=== PATIENT | female | born 1940 | race Caucasian/White ===

== ENCOUNTER → 2016-05-14 | Outpatient (CLI) | payer MEDICARE, BC ==
[~2016-05-14] MED LIST: ASPIRIN E.C. 8181 MG PO; CALCIUM 500 W/V1 TAB PO; FORTICAL200 IU/ACT NS; HORMONE COMPOUND PO; MULTIVITAMIN FO1 CAP PO; OMEGA 31000 MG PO; OMEPRAZOLE20 MG PO; SIMVASTATIN20 MG PO; THYROXIN PO; ZYRTEC10 MG PO
== END ==
LOC: MC.RAD 14:00
DX: Z12.31 Encounter for screening mammogram for malignant neoplasm of breast (principal)

== ENCOUNTER → 2017-05-26 | Outpatient (CLI) | payer MEDICARE, BC | LOC: MC.RAD 15:46 | DX: Z12.31 Encounter for screening mammogram for malignant neoplasm of breast (principal) ==

== ENCOUNTER → 2018-03-14 | Outpatient (CLI) | payer MEDICARE, BC | LOC: MC.RAD 13:51 | DX: N63.20 Unspecified lump in the left breast, unspecified quadrant (principal); N64.4 Mastodynia | CPT/HCPCS: G0279 ==

== ENCOUNTER 2019-03-25 21:07 | Emergency (ER) | payer MEDICARE, BC ==
[~2019-03-25] VITALS: Ht 165.1 cm; Wt 72.7 kg
[2019-03-25 21:12] VITALS: TEMP 97.7
[2019-03-25 21:28] LABS: BASO # 0.1 (0.0-0.2); EOS # 0.3 (0.0-0.7); EOS % 3.1 % (0-4.0); GRAN # 3.4 (1.4-6.5); GRAN % 40.2 % (42.2-75.2); HEMATOCRIT 44.2 % (37.0-47.0); HEMOGLOBIN 13.9 g/dl (12.5-16.0); LYMPH # 3.8 (1.2-3.4); LYMPH % 45.6 % (20.0-51.0); MEAN CELL VOLUME 89 fl (80.0-100.0); MEAN CORPUSCULAR HEMOGLOBIN 28 pg (27.0-31.0); MEAN CORPUSCULAR HGB CONC 31 g/dl (33.0-37.0); MONO # 0.8 (0.1-0.6); MONO % 9.7 % (1.7-9.3); PLATELET COUNT 239 K/mm3 (130-400); RED BLOOD COUNT 4.95 M/mm3 (4.10-5.30); REDCELL DISTRIBUTION WIDTH-CV 14.3 % (11.5-14.5)
[2019-03-25 21:32] LABS: PROTHROMBIN TIME 11.8 SECONDS (9.7-12.8)
[2019-03-25] MEDS ORDERED: ELIQUIS 5MG PO (21:32)
[2019-03-25] MEDS ORDERED: TOPROL XL 50MG50 MG PO (21:32)
[2019-03-25] MEDS ORDERED: SYNTHROID0.05 MG/TA PO (21:33)
[2019-03-25 21:39] LABS: ALANINE AMINOTRANSFERASE 29 U/L (9-52); ALBUMIN 4.9 gm/dL (3.5-5.0); ALKALINE PHOSPHATASE 58 U/L (50-136); ANION GAP 10 mmol/L (7-16); AST,SGOT 56 U/L (15-37); BILIRUBIN,TOTAL 0.3 mg/dL (0.0-1.0); BLOOD UREA NITROGEN 20 mg/dL (7-17); CALCIUM 9.8 mg/dL (8.4-10.2); CARBON DIOXIDE 28 mmol/L (22-30); CHLORIDE 101 mmol/L (98-107); CREATININE, serum 1.19 (0.52-1.25); GLUCOSE 103 mg/dL (74-106); POTASSIUM 4.1 mmol/L (3.4-5.0); SODIUM 139 mmol/L (137-145)
[2019-03-25 21:51] LABS: TROPONIN-I < 0.012 ng/mL (0.000-0.035)
[2019-03-26 01:00] VITALS: BP 148/69; PULSE 60
== END 2019-03-26 01:15 | disposition home or self-care (01) ==
LOC: COL.ER 21:07
PROVIDERS: Emergency Medicine
DX: R07.89 Other chest pain (principal); R10.9 Unspecified abdominal pain; E03.9 Hypothyroidism, unspecified; E78.5 Hyperlipidemia, unspecified; I48.91 Unspecified atrial fibrillation; Z90.89 Acquired absence of other organs; Z79.01 Long term (current) use of anticoagulants; Z79.82 Long term (current) use of aspirin

== ENCOUNTER 2019-10-02 06:30 | Day surgery (SDC) | payer MEDICARE, BC ==
[~2019-10-02] VITALS: Ht 165.1 cm; Wt 74.5 kg
[2019-10-02] VITALS (9 sets, daily range): BP systolic 88–150; BP diastolic 45–75; PULSE 58–84; TEMP 97.5–97.8
[~2019-10-02 06:30] MED LIST changes: +ELIQUIS 5MG PO; +SYNTHROID0.05 MG/TA PO; +TOPROL XL 50MG50 MG PO
[2019-10-02 07:30] LABS: CALCIUM 10.1 mg/dL (8.4-10.2); CREATININE, serum 0.81 (0.52-1.25); POTASSIUM 4.6 mmol/L (3.4-5.0)
[2019-10-02] MEDS ORDERED: FORTICAL200 IU/ACT NS (08:01)
[2019-10-02] MEDS ORDERED: PRILOSEC 20MG20 MG PO (08:02)
[2019-10-02] MEDS ORDERED: TIROSINT50 MC1 PO (08:02)
[2019-10-02] MEDS ORDERED: POLY GLYCOL PO (08:04)
[2019-10-02] MEDS ORDERED: TOPROL XL 50MG50 MG PO (08:05)
[2019-10-02] MEDS ORDERED: ELIQUIS 5MG PO (08:06)
[2019-10-02] MEDS ORDERED: MAGNESIUM500 MG PO (08:07)
[2019-10-02] MEDS ORDERED: EPA FISH OIL1 SGL PO (08:08)
[2019-10-02] MEDS ORDERED: CALCIUM CARBON650 M2 PO (08:09)
[2019-10-02] MEDS ORDERED: ZOCOR 20MG20 MG PO (08:09)
[2019-10-02] MEDS ORDERED: NORCO 325 MG-51 TAB PO (09:12)
--- NOTE | 2019-10-02 10:15 | NUR ---
Patient returns to room 6 per cart from PACU accompanied by Krystyna HONEYCUTT and is awake and alert. Incisions x3 on abdomen covered with bandaids and are dry. Denies pain or nausea. IV fluids infusing and siderails up x2. Call light in reach. Spouse in room. Allowed to rest. Sipping on ice chips.
--- NOTE | 2019-10-02 10:30 | NUR ---
Room air sats 95%. Resting and denies pain or nausea. Spouse in room.
--- NOTE | 2019-10-02 10:45 | NUR ---
Resting with eyes closed when not disturbed.
--- NOTE | 2019-10-02 11:00 | NUR ---
Continues to rest without complaints of pain or nausea.
--- NOTE | 2019-10-02 11:15 | NUR ---
Patient eating muffin and assisted with repositioning. Denies pain or nausea.
--- NOTE | 2019-10-02 11:45 | NUR ---
Assisted up to the bathroom and gait is steady. Voids and returns to room. Denies pain or nausea.
--- NOTE | 2019-10-02 12:15 | NUR ---
Tolerates juice, muffin, and water. Continues to deny pain or nausea.
--- NOTE | 2019-10-02 12:40 | NUR ---
IV discontinued and patient dresses self. Given dismissal instructions and voices understanding of these. Provided script for [place]. Instructed the patient to begin Eliquis on 10/03/19.
--- NOTE | 2019-10-02 12:44 | NUR ---
Patient dismissed to home driven by spouse and taken to the front door per wheelchair and assisted into car with dismissal instructions in hand.
== END 2019-10-02 12:44 | disposition home or self-care (01) ==
LOC: SDCO 06:30
PROVIDERS: Nurse Anesthetist, Certified Registered
DX: K80.12 Calculus of gallbladder with acute and chronic cholecystitis without obstruction (principal); Z95.0 Presence of cardiac pacemaker; I48.91 Unspecified atrial fibrillation; I10 Essential (primary) hypertension; E78.00 Pure hypercholesterolemia, unspecified; Z82.3 Family history of stroke; Z79.01 Long term (current) use of anticoagulants; Z80.9 Family history of malignant neoplasm, unspecified; Z79.899 Other long term (current) drug therapy; Z79.82 Long term (current) use of aspirin
CPT/HCPCS: J0360; J2704; J3010; J7120

== ENCOUNTER 2019-11-03 18:29 | Inpatient (IN) | payer MEDICARE, BC ==
[~2019-11-03] VITALS: Wt 72.7 kg
[~2019-11-03 18:29] MED LIST changes: +CALCIUM CARBON650 M2 PO; +EPA FISH OIL1 SGL PO; +MAGNESIUM500 MG PO; +NORCO 325 MG-51 TAB PO; +POLY GLYCOL PO; +PRILOSEC 20MG20 MG PO; +TIROSINT50 MC1 PO; +ZOCOR 20MG20 MG PO
[2019-11-03 19:19] LABS: ALANINE AMINOTRANSFERASE 604 U/L (4-34); ALBUMIN 4.4 gm/dL (3.5-5.0); ALKALINE PHOSPHATASE 352 U/L (50-136); ANION GAP 8 mmol/L (7-16); AST,SGOT 537 U/L (15-37); BILIRUBIN,TOTAL 2.3 mg/dL (0.0-1.0); BLOOD UREA NITROGEN 11 mg/dL (7-17); C-REACTIVE PROTEIN 2.1 mg/dL (0.0-0.9); CALCIUM 9.3 mg/dL (8.4-10.2); CARBON DIOXIDE 28 mmol/L (22-30); CHLORIDE 96 mmol/L (98-107); CREATININE, serum 0.79 (0.52-1.25); GLUCOSE 117 mg/dL (74-106); POTASSIUM 3.8 mmol/L (3.4-5.0); SODIUM 132 mmol/L (137-145); TOTAL PROTEIN 7.8 gm/dL (6.4-8.2)
[2019-11-03 19:28] LABS: TROPONIN-I < 0.012 ng/mL (0.000-0.035)
[2019-11-03 19:36] LABS: INR 1.1 (0.8-3.0); PROTHROMBIN TIME 12.8 SECONDS (9.7-12.8)
[2019-11-03 19:38] LABS: BASO % 0.3 % (0.0-2.0); EOS # 0.5 (0.0-0.7); EOS % 5.5 % (0-4.0); GRAN # 7.1 (1.4-6.5); GRAN % 76.3 % (42.2-75.2); HEMATOCRIT 43.2 % (37.0-47.0); HEMOGLOBIN 13.7 g/dl (12.5-16.0); LYMPH # 1.2 (1.2-3.4); MEAN CELL VOLUME 88 fl (80.0-100.0); MEAN CORPUSCULAR HEMOGLOBIN 28 pg (27.0-31.0); MEAN CORPUSCULAR HGB CONC 32 g/dl (33.0-37.0); MEAN PLATELET VOLUME 11.4 fl (7.4-10.4); MONO # 0.4 (0.1-0.6); MONO % 4.6 % (1.7-9.3); PLATELET COUNT 162 K/mm3 (130-400); RED BLOOD COUNT 4.91 M/mm3 (4.10-5.30); REDCELL DISTRIBUTION WIDTH-CV 13.9 % (11.5-14.5)
[2019-11-03 19:39] LABS: PARTIAL THROMBOPLASTIN TIME 33.2 SECONDS (26.0-37.0)
[2019-11-03 22:12] VITALS: BP 170/90; PULSE 103; TEMP 98.6
[2019-11-03 23:00] VITALS: BP 158/86
[2019-11-03 23:39] VITALS: BP 148/80
[2019-11-04 00:58] VITALS: BP 159/70; PULSE 101; TEMP 101.7; TEMP 102.8
[2019-11-04 01:54] LABS: ARTERIAL BLD GAS O2 SATURATION 90.7 % (92-100); ARTERIAL BLD GAS TCO2 CT 23.5; ARTERIAL BLOOD GAS BASE EXCESS 0.3 (-2-2); ARTERIAL BLOOD GAS HCO3 22.6 meq/L (22-26); ARTERIAL BLOOD GAS PO2 50.6 mmHg (80-100); ARTERIAL BLOOD GAS pH 7.49 (7.35-7.45)
[2019-11-04 02:05] LABS: HEMATOCRIT 38.7 % (37.0-47.0); MEAN CELL VOLUME 84 fl (80.0-100.0); MEAN CORPUSCULAR HEMOGLOBIN 28 pg (27.0-31.0); MEAN CORPUSCULAR HGB CONC 34 g/dl (33.0-37.0); MEAN PLATELET VOLUME 8.8 fl (7.4-10.4); PLATELET COUNT 113 K/mm3 (130-400); RED BLOOD COUNT 4.62 M/mm3 (4.10-5.30); REDCELL DISTRIBUTION WIDTH-CV 13.9 % (11.5-14.5)
[2019-11-04 02:07] LABS: COLLECTION METHOD CLEAN CATCH
[2019-11-04 02:16] LABS: ALBUMIN 3.8 gm/dL (3.5-5.0); BILIRUBIN,TOTAL 4.5 mg/dL (0.0-1.0); CALCIUM 9.1 mg/dL (8.4-10.2); CREATININE, serum 0.69 (0.52-1.25); TOTAL PROTEIN 6.7 gm/dL (6.4-8.2)
[2019-11-04 02:18] LABS: POTASSIUM 2.8 mmol/L (3.4-5.0)
[2019-11-04 02:23] LABS: MUCOUS Present /lpf; PH 7 (5-8); SQUAMOUS EPITHELIAL 0-2 /hpf; URINE APPEARANCE Clear; URINE BACTERIA None Seen /hpf; URINE BILIRUBIN Negative (NEGATIVE); URINE BLOOD 1+ (NEGATIVE); URINE COLOR Yellow; URINE GLUCOSE Negative (NEGATIVE); URINE KETONE Negative (NEGATIVE); URINE LEUKOCYTE ESTERASE Negative (NEGATIVE); URINE NITRATE Negative (NEGATIVE); URINE PROTEIN(semi-quant) Negative (NEGATIVE); URINE UROBILINOGEN Negative (NEGATIVE)
[2019-11-04 02:33] LABS: TRICYCLIC ANTIDEPRESS URINE NEGATIVE
[2019-11-04 03:08] VITALS: BP 102/46; PULSE 86; TEMP 99.5
[2019-11-04 03:46] LABS: BAND 66 % (0-10); LYMPHOCYTE 1 % (20.0-51.0); METAMYELOCYTE 1 % (0-0); NEUTROPHILS 29 % (42.0-75.2); PLATELET ESTIMATE NORMAL (NORMAL)
[2019-11-04 07:39] VITALS: BP 92/50; PULSE 68; TEMP 98.3
[2019-11-04 11:19] VITALS: BP 98/48; PULSE 71; TEMP 98.4
[2019-11-04 15:12] VITALS: BP 91/47; PULSE 77; TEMP 97.6
[2019-11-04 20:00] VITALS: BP 119/67; PULSE 76; TEMP 98.9
[2019-11-05] VITALS (13 sets, daily range): BP systolic 108–130; BP diastolic 51–88; PULSE 78–115; TEMP 97.2–99.2
[2019-11-05 07:55] LABS: MEAN CELL VOLUME 86 fl (80.0-100.0); MEAN CORPUSCULAR HGB CONC 33 g/dl (33.0-37.0); MEAN PLATELET VOLUME 10.1 fl (7.4-10.4); PLATELET COUNT 97 K/mm3 (130-400); RED BLOOD COUNT 3.84 M/mm3 (4.10-5.30); REDCELL DISTRIBUTION WIDTH-CV 14.6 % (11.5-14.5)
[2019-11-05 07:59] LABS: HEMATOCRIT 32.9 % (37.0-47.0); HEMOGLOBIN 10.8 g/dl (12.5-16.0); MEAN CORPUSCULAR HEMOGLOBIN 28 pg (27.0-31.0)
[2019-11-05 08:03] LABS: ALBUMIN 3.1 gm/dL (3.5-5.0); CALCIUM 8.9 mg/dL (8.4-10.2); CREATININE, serum 1.03 (0.52-1.25); MAGNESIUM 1.9 mg/dL (1.6-2.3); POTASSIUM 4.2 mmol/L (3.4-5.0)
[2019-11-05 09:29] LABS: BAND 18 % (0-10); EOSINOPHIL 4 % (0-4); LYMPHOCYTE 3 % (20.0-51.0); NEUTROPHILS 74 % (42.0-75.2); PLATELET ESTIMATE DECREASED (NORMAL)
[2019-11-06] VITALS (7 sets, daily range): BP systolic 90–127; BP diastolic 48–73; PULSE 63–95; TEMP 97.6–99
[2019-11-06 09:20] LABS: MEAN CELL VOLUME 87 fl (80.0-100.0); MEAN CORPUSCULAR HGB CONC 32 g/dl (33.0-37.0); MEAN PLATELET VOLUME 10.1 fl (7.4-10.4); PLATELET COUNT 89 K/mm3 (130-400); RED BLOOD COUNT 3.45 M/mm3 (4.10-5.30); REDCELL DISTRIBUTION WIDTH-CV 14.6 % (11.5-14.5)
[2019-11-06 09:21] LABS: HEMOGLOBIN 9.6 g/dl (12.5-16.0); MEAN CORPUSCULAR HEMOGLOBIN 28 pg (27.0-31.0)
[2019-11-06 09:32] LABS: CALCIUM 7.3 mg/dL (8.4-10.2); CREATININE, serum 0.75 (0.52-1.25); POTASSIUM 3.7 mmol/L (3.4-5.0)
[2019-11-06 09:53] LABS: BAND 3 % (0-10); EOSINOPHIL 6 % (0-4); LYMPHOCYTE 4 % (20.0-51.0); METAMYELOCYTE 1 % (0-0); NEUTROPHILS 85 % (42.0-75.2)
[2019-11-06 09:54] LABS: ANISOCYTOSIS 1+; PLATELET ESTIMATE DECREASED (NORMAL)
[2019-11-06 09:55] LABS: POLYCHROMASIA 1+
[2019-11-06 10:19] LABS: ALBUMIN 2.6 gm/dL (3.5-5.0); BILIRUBIN,TOTAL 1.3 mg/dL (0.0-1.0); TOTAL PROTEIN 5.5 gm/dL (6.4-8.2)
[2019-11-07 04:39] VITALS: BP 112/41; PULSE 61; TEMP 98.9
[2019-11-07 07:07] LABS: BASO # 0.1 (0.0-0.2); BASO % 0.7 % (0.0-2.0); EOS # 0.7 (0.0-0.7); EOS % 9.4 % (0-4.0); GRAN # 4.5 (1.4-6.5); GRAN % 64.1 % (42.2-75.2); HEMATOCRIT 32.4 % (37.0-47.0); HEMOGLOBIN 10.5 g/dl (12.5-16.0); LYMPH # 1.4 (1.2-3.4); LYMPH % 19.5 % (20.0-51.0); MEAN CELL VOLUME 87 fl (80.0-100.0); MEAN CORPUSCULAR HEMOGLOBIN 28 pg (27.0-31.0); MEAN CORPUSCULAR HGB CONC 32 g/dl (33.0-37.0); MEAN PLATELET VOLUME 9.8 fl (7.4-10.4); MONO # 0.4 (0.1-0.6); MONO % 5.4 % (1.7-9.3); PLATELET COUNT 122 K/mm3 (130-400); RED BLOOD COUNT 3.74 M/mm3 (4.10-5.30); REDCELL DISTRIBUTION WIDTH-CV 14.6 % (11.5-14.5)
[2019-11-07 07:26] LABS: CALCIUM 8.7 mg/dL (8.4-10.2); CREATININE, serum 1.04 (0.52-1.25); MAGNESIUM 1.9 mg/dL (1.6-2.3); POTASSIUM 3.9 mmol/L (3.4-5.0)
[2019-11-07 07:51] VITALS: BP 121/55; PULSE 72; TEMP 98.5
[2019-11-07 11:40] VITALS: BP 139/62; PULSE 65; TEMP 98.6
[2019-11-07 16:50] VITALS: BP 138/65; PULSE 61; TEMP 98.8
[2019-11-07 19:13] VITALS: BP 95/56; PULSE 80; TEMP 97.4
[2019-11-07 23:36] VITALS: BP 124/55; PULSE 68; TEMP 98
[2019-11-08 03:32] VITALS: BP 123/59; PULSE 62; TEMP 97.9
[2019-11-08] MEDS ORDERED: BETAPACE 80MG80 MG PO (07:45)
[2019-11-08 07:51] VITALS: BP 135/70; PULSE 74; TEMP 98.3
[2019-11-08] MEDS ORDERED: OMNICEF 300MG300 MG PO (08:43)
[2019-11-08 11:27] VITALS: BP 134/64; PULSE 70; TEMP 98.5
== END 2019-11-08 14:00 | disposition home or self-care (01) | DRG 871 ==
LOC: COL.ER 18:29 → MEDICAL 20:44
PROVIDERS: Family Medicine; Internal Medicine Gastroenterology; Physician Assistant; ADMIT Hospitalist
PROC: 0FC98ZZ Extirpation of Matter from Common Bile Duct, Via Natural or Artificial Opening Endoscopic (ICD-10-PCS; principal; 2019-11-05 13:00)
DX: A41.9 Sepsis, unspecified organism (principal); J96.01 Acute respiratory failure with hypoxia; E87.1 Hypo-osmolality and hyponatremia; K80.30 Calculus of bile duct with cholangitis, unspecified, without obstruction; I16.0 Hypertensive urgency; E87.6 Hypokalemia; E83.42 Hypomagnesemia; I48.91 Unspecified atrial fibrillation; E03.9 Hypothyroidism, unspecified; K21.9 Gastro-esophageal reflux disease without esophagitis; E78.5 Hyperlipidemia, unspecified; I48.0 Paroxysmal atrial fibrillation; Z95.0 Presence of cardiac pacemaker; Z79.01 Long term (current) use of anticoagulants
CPT/HCPCS: 99223-AI; 99232-AI; 99233-AI; 99239; C1769; J0696; J1170; J1610; J2543; J2550; J2704; J3475; J3480; J7120; Q9967

== ENCOUNTER 2019-11-09 23:39 | Observation (INO) | payer MEDICARE, BC ==
[~2019-11-09] VITALS: Wt 73.9 kg
[~2019-11-09 23:39] MED LIST changes: +BETAPACE 80MG80 MG PO; +OMNICEF 300MG300 MG PO
[2019-11-10 00:20] LABS: HEMATOCRIT 37.7 % (37.0-47.0); HEMOGLOBIN 11.8 g/dl (12.5-16.0); MEAN CELL VOLUME 87 fl (80.0-100.0); MEAN CORPUSCULAR HEMOGLOBIN 27 pg (27.0-31.0); MEAN CORPUSCULAR HGB CONC 31 g/dl (33.0-37.0); MEAN PLATELET VOLUME 9.1 fl (7.4-10.4); RED BLOOD COUNT 4.32 M/mm3 (4.10-5.30); REDCELL DISTRIBUTION WIDTH-CV 14.2 % (11.5-14.5)
[2019-11-10 00:29] LABS: ALANINE AMINOTRANSFERASE 69 U/L (4-34); ALBUMIN 3.8 gm/dL (3.5-5.0); ALKALINE PHOSPHATASE 141 U/L (50-136); ANION GAP 6 mmol/L (7-16); AST,SGOT 26 U/L (15-37); BILIRUBIN,TOTAL 0.7 mg/dL (0.0-1.0); BLOOD UREA NITROGEN 12 mg/dL (7-17); CALCIUM 9.4 mg/dL (8.4-10.2); CARBON DIOXIDE 26 mmol/L (22-30); CHLORIDE 102 mmol/L (98-107); CREATININE, serum 0.81 (0.52-1.25); GLUCOSE 99 mg/dL (74-106); SODIUM 134 mmol/L (137-145); TOTAL PROTEIN 7.1 gm/dL (6.4-8.2)
[2019-11-10 00:40] LABS: TROPONIN-I < 0.012 ng/mL (0.000-0.035)
[2019-11-10 00:44] LABS: PLATELET COUNT 245 K/mm3 (130-400)
[2019-11-10 01:04] LABS: COLLECTION METHOD CLEAN CATCH
[2019-11-10 01:11] LABS: BAND 7 % (0-10); EOSINOPHIL 1 % (0-4); HYPOCHROMIA 1+; LYMPHOCYTE 34 % (20.0-51.0); METAMYELOCYTE 2 % (0-0); NEUTROPHILS 51 % (42.0-75.2)
[2019-11-10 01:12] LABS: PLATELET ESTIMATE NORMAL (NORMAL)
[2019-11-10 01:18] LABS: PH 7 (5-8); SQUAMOUS EPITHELIAL None Seen /hpf; URINE APPEARANCE Clear; URINE BACTERIA None Seen /hpf; URINE BILIRUBIN Negative (NEGATIVE); URINE BLOOD Negative (NEGATIVE); URINE COLOR Colorless; URINE GLUCOSE Negative (NEGATIVE); URINE KETONE Negative (NEGATIVE); URINE LEUKOCYTE ESTERASE Negative (NEGATIVE); URINE NITRATE Negative (NEGATIVE); URINE PROTEIN(semi-quant) Negative (NEGATIVE); URINE RBC 0-2 /hpf; URINE UROBILINOGEN Negative (NEGATIVE); URINE WBC 0-2 /hpf
--- NOTE | 2019-11-10 05:00 | NUR ---
Arrived to medical floor. Assessment complete. Lungs clear. Heart sounds normal. Bowels active x4. Pulses present throughout. No edema noted. INT right forearm without complications. Orientated to medical floor. Med rec complete. All questions answered at this time. Arabella LLANOS notified of patient arrival.
[2019-11-10 05:18] VITALS: BP 148/70; PULSE 66; TEMP 98
--- NOTE | 2019-11-10 06:24 | NUR ---
Resting in bed currently. Denies needs. Call light in reach.
--- NOTE | 2019-11-10 07:18 | NUR ---
Report given to TANGELA Gill
[2019-11-10 08:19] VITALS: BP 124/51; PULSE 64; TEMP 98.1
--- NOTE | 2019-11-10 08:35 | NUR ---
Assessment completed, alert/oriented, vital signs stable/ blood pressures are improved and are now WNL senlisha being admitted to Medical floor, she denies any chest pain or discomfort, stated headache is resolved as well, heart RRR/ paced on tele, lungs CTA/ denies any SOA or resp.difficulty, she is sitting up in bed eating breakfast, denies needs
[2019-11-10] MEDS ORDERED: ZESTORETIC 12.51 TAB PO (10:26)
[2019-11-10] MEDS ORDERED: APRESOLINE 10MG10 MG PO (10:27)
--- NOTE | 2019-11-10 11:35 | NUR ---
Plan: To return home locally with Willis Assessment: Patient report that she does have a pacemaker but does not require any other DME at [facility]. Patient reports that her PCP is Dr. Smith. Patient reprots that she uses [facility] [place] Patient denies the use of any home health and her spouse is her DPOA. Patient reports that she recenlty DC and came back because her BP was high and could not get it to go down with her medications. Returned to [facility] over the last week. Action: Educated patient on community resources and support. Patient to DC. Nothing follows.
--- NOTE | 2019-11-10 12:37 | NUR ---
Discharge instructions reveiwed with the patient, instructed to follow with PCP as scheduled, discussed new medications and scripts sent to pharmacy for her, IV and tele removed, she is leaving with her and I will escort her out the door when he arrives to pick her up
== END 2019-11-10 12:41 | disposition home or self-care (01) ==
LOC: COL.ER 23:39 → MEDICAL 11-10 03:36
PROVIDERS: Emergency Medicine; ADMIT Internal Medicine
DX: I16.0 Hypertensive urgency (principal); R51 Headache; A41.9 Sepsis, unspecified organism; E78.5 Hyperlipidemia, unspecified; I48.91 Unspecified atrial fibrillation; E03.9 Hypothyroidism, unspecified; K21.9 Gastro-esophageal reflux disease without esophagitis; Z95.0 Presence of cardiac pacemaker; Z79.01 Long term (current) use of anticoagulants; Z79.899 Other long term (current) drug therapy; Z88.5 Allergy status to narcotic agent; Z98.890 Other specified postprocedural states; Z90.710 Acquired absence of both cervix and uterus; Z90.721 Acquired absence of ovaries, unilateral; Z90.49 Acquired absence of other specified parts of digestive tract; Z79.2 Long term (current) use of antibiotics
CPT/HCPCS: G0378; J0360

== ENCOUNTER → 2019-12-11 | Outpatient (CLI) | payer MEDICARE, BC ==
[~2019-12-11] MED LIST changes: +APRESOLINE 10MG10 MG PO; +ZESTORETIC 12.51 TAB PO
== END ==
LOC: COL.RAD
DX: K21.9 Gastro-esophageal reflux disease without esophagitis (principal)

== ENCOUNTER → 2019-12-31 | Outpatient (CLI) | payer MEDICARE, BC | LOC: COL.RAD 12-20 07:30 | DX: K21.9 Gastro-esophageal reflux disease without esophagitis (principal); Q44.1 Other congenital malformations of gallbladder; Z90.49 Acquired absence of other specified parts of digestive tract ==

== ENCOUNTER → 2020-08-13 | Outpatient (CLI) | payer MEDICARE, BC ==
--- NOTE | 2020-08-13 09:52 | NUR ---
Patients pacemaker put into MRI mode by [employer] rep. Patient monitered by nurse. Paemaker was returned to orignal settings once the MRI was completed.
== END ==
LOC: COL.RAD 08:30
DX: M48.061 Spinal stenosis, lumbar region without neurogenic claudication (principal); M51.36 Other intervertebral disc degeneration, lumbar region; M47.816 Spondylosis without myelopathy or radiculopathy, lumbar region

== ENCOUNTER → 2021-02-23 | Outpatient (CLI) | payer MEDICARE, BC | LOC: COL.RAD 11:47 | DX: S32.020A Wedge compression fracture of second lumbar vertebra, initial encounter for closed fracture (principal); M47.816 Spondylosis without myelopathy or radiculopathy, lumbar region; M48.061 Spinal stenosis, lumbar region without neurogenic claudication; W19.XXXA Unspecified fall, initial encounter ==

== ENCOUNTER 2021-09-16 21:41 | Inpatient (IN) | payer MEDICARE, BC ==
[~2021-09-16] VITALS: Ht 165.1 cm; Wt 84.9 kg
[~2021-09-16 21:41] MED LIST changes: +CALCIUM 600MG+D1 TAB PO; -CALCIUM CARBON650 M2 PO
[2021-09-16 22:37] LABS: BASO % 0.4 % (0.0-2.0); EOS # 0.2 K/mm3 (0.0-0.7); GRAN # 6.9 K/mm3 (1.4-6.5); GRAN % 68.5 % (42.2-75.2); HEMATOCRIT 38.3 % (37.0-47.0); HEMOGLOBIN 13.3 g/dl (12.5-16.0); LYMPH # 1.7 K/mm3 (1.2-3.4); LYMPH % 16.4 % (20.0-51.0); MEAN CELL VOLUME 81 fl (80.0-100.0); MEAN CORPUSCULAR HEMOGLOBIN 28 pg (27-31); MEAN CORPUSCULAR HGB CONC 35 g/dl (33.0-37.0); MEAN PLATELET VOLUME 8.8 fl (7.4-10.4); MONO # 1.2 K/mm3 (0.1-0.6); MONO % 12.2 % (1.7-9.3); PLATELET COUNT 302 K/mm3 (130-400); RED BLOOD COUNT 4.73 M/mm3 (4.10-5.30); REDCELL DISTRIBUTION WIDTH-CV 13.3 % (11.5-14.5)
[2021-09-16 22:47] LABS: ALANINE AMINOTRANSFERASE 14 U/L (0-55); ALBUMIN 3.3 gm/dL (3.4-4.8); ALKALINE PHOSPHATASE 69 U/L (40-150); ANION GAP 14 mmol/L (7-16); AST,SGOT 14 U/L (5-34); BILIRUBIN,TOTAL 0.9 mg/dL (0.2-1.2); BLOOD UREA NITROGEN 9 mg/dL (10-20); CALCIUM 9.5 mg/dL (8.4-10.2); CARBON DIOXIDE 22 mmol/L (23-31); CREATININE, serum 0.68 mg/dL (0.57-1.11); GLUCOSE 126 mg/dL (70-99); POTASSIUM 3.6 mmol/L (3.5-4.5); TOTAL PROTEIN 7.2 gm/dL (6.2-8.1)
[2021-09-16 22:57] LABS: LIPASE < 4 U/L (8-78)
[2021-09-16 22:58] LABS: CHLORIDE 83 mmol/L (98-107); SODIUM 119 mmol/L (136-145)
[2021-09-16] MEDS ORDERED: HCTZ12.5TAB PO (23:16)
[2021-09-16] MEDS ORDERED: MASON NATURAL1200 MG PO (23:16)
[2021-09-16] MEDS ORDERED: MASON NATURAL2000 IU PO (23:17)
[2021-09-16] MEDS ORDERED: DOXYCYCLINE HY100 MG PO (23:17)
[2021-09-16] MEDS ORDERED: MAGNESIUM250 M1 PO (23:17)
[2021-09-17] VITALS (7 sets, daily range): BP systolic 102–150; BP diastolic 52–78; PULSE 72–83; TEMP 97.7–98.4
[2021-09-17 01:09] LABS: COLLECTION METHOD CLEAN CATCH
[2021-09-17 01:14] LABS: MUCOUS Present (NOT PRESENT); PH 6 (5-8); SQUAMOUS EPITHELIAL 0-2 /hpf (0-10); URINE APPEARANCE Clear (CLEAR/HAZY); URINE BACTERIA None Seen /hpf (NONE SEEN); URINE BILIRUBIN Negative (NEGATIVE); URINE BLOOD 1+ (NEGATIVE); URINE COLOR Yellow (YELLOW); URINE GLUCOSE Negative (NEGATIVE); URINE KETONE Negative (NEGATIVE); URINE LEUKOCYTE ESTERASE Negative (NEGATIVE); URINE NITRATE Negative (NEGATIVE); URINE PROTEIN(semi-quant) Negative (NEGATIVE); URINE UROBILINOGEN Negative (NEGATIVE)
[2021-09-17] MEDS ORDERED: BETAPACE 120MG120 MG PO (01:21)
--- NOTE | 2021-09-17 02:09 | NUR ---
Patient arrived to medical unit from ER at approximately 0120. Denies having pain and discomfort at this time. Peripheral IV to right forearm with IV fluids running per orders. Patient denies nausea at this time. No free water restriction, clear liquid diet. Given gatorade. Patient requested Melatonin for sleep. Called [place], and given per orders. Patient voices no questions, needs, or concerns at this time. In bed with call light within reach.
[2021-09-17 04:35] LABS: BASO % 0.3 % (0.0-2.0); EOS # 0.1 K/mm3 (0.0-0.7); EOS % 1.2 % (0.0-4.0); GRAN # 6.4 K/mm3 (1.4-6.5); GRAN % 69.2 % (42.2-75.2); LYMPH # 1.6 K/mm3 (1.2-3.4); LYMPH % 16.9 % (20.0-51.0); MEAN CELL VOLUME 85 fl (80.0-100.0); MEAN CORPUSCULAR HGB CONC 34 g/dl (33.0-37.0); MEAN PLATELET VOLUME 8.8 fl (7.4-10.4); MONO # 1.1 K/mm3 (0.1-0.6); MONO % 12.1 % (1.7-9.3); PLATELET COUNT 243 K/mm3 (130-400); RED BLOOD COUNT 3.93 M/mm3 (4.10-5.30); REDCELL DISTRIBUTION WIDTH-CV 13.3 % (11.5-14.5)
[2021-09-17 04:39] LABS: HEMATOCRIT 33.3 % (37.0-47.0); HEMOGLOBIN 11.2 g/dl (12.5-16.0); MEAN CORPUSCULAR HEMOGLOBIN 28 pg (27-31)
[2021-09-17 04:51] LABS: CALCIUM 8.9 mg/dL (8.4-10.2); CREATININE, serum 0.69 mg/dL (0.57-1.11); POTASSIUM 3.6 mmol/L (3.5-4.5)
--- NOTE | 2021-09-17 05:31 | NUR ---
Patient has had no complaints of nausea since arriving to medical floor. Denies pain and discomfort. Continues on IV fluids per orders, and no free water. Voices no questions, needs, or concerns at this time. In bed with call light within reach.
--- NOTE | 2021-09-17 09:31 | NUR ---
Scheduled medications given. Shift assessment preformed. Patient A&O. VSS. IV fluids running as ordered. Patient denies any N/V/D, SOA, pain, discomfort, or further needs at this time. Call light in reach.
--- NOTE | 2021-09-17 10:29 | NUR ---
Initial visit; Patient states she is "doing ok" and is maybe a little better. Photographer [employer] wished patient well and offered God's blessings.
[2021-09-17 10:40] LABS: OSMOLALITY-SERUM 259 Osm/kg (275-300)
[2021-09-17 10:44] LABS: CREATININE, serum 0.69 mg/dL (0.57-1.11); POTASSIUM 3.8 mmol/L (3.5-4.5)
[2021-09-17 11:05] LABS: TSH w REFLEX 1.488 uIU/mL (0.350-4.940)
--- NOTE | 2021-09-17 11:13 | NUR ---
Machine Operator Farmworker met with patient to discuss discharge planning. Patient lives in [place] with her , Willis (ph#[phone]) [address] sees Dr. Smith for primary care. Patient obtains medications from [facility] with no difficulties and uses a cane for ambulation. Patient is independent with ADLS and plans to return home at time of discharge. Patient advsied that her , Willis is her DPOA-HC along with her two children: Janes and Janell. SW collaborated with RN who advised patient is independent in her room. Discharge Plan: Home
[2021-09-17 16:46] LABS: CREATININE, serum 0.66 mg/dL (0.57-1.11); POTASSIUM 4.3 mmol/L (3.5-4.5)
--- NOTE | 2021-09-17 19:11 | NUR ---
Patient has hasd an ok day. Fluids running as ordered. VSS. Patient denies any pain, discomfort, SOA, or further needs at this time. Call light in reach.
--- NOTE | 2021-09-17 22:22 | NUR ---
Patient assessed around 2024. Alert and oriented, and able to make needs known. Denies pain and discomfort. Periphera INT to right forearm with fluids running per orders. Denies SOB and dyspnea. LS CTA. HRR. Telemetry in pace. BSAx4. Denies nausea and upset stomach. Voices no questions, needs, or concerns at this time. In recliner with nurys light within reach.
[2021-09-18 03:58] VITALS: BP 139/63; PULSE 78; TEMP 97.6
--- NOTE | 2021-09-18 05:38 | NUR ---
Patient has denied pain and discomfort. Continues on IV fluids per oders. Wanting to advance diet this morning, diet changed to full liquids per order to advance as tolerated. Voices no further questions, needs, or concerns at this time. In bed with call light within reach.
[2021-09-18 06:31] LABS: BASO # 0.1 K/mm3 (0.0-0.2); BASO % 0.8 % (0.0-2.0); EOS # 0.3 K/mm3 (0.0-0.7); EOS % 3.7 % (0.0-4.0); GRAN # 4.7 K/mm3 (1.4-6.5); GRAN % 66.4 % (42.2-75.2); LYMPH # 1.2 K/mm3 (1.2-3.4); LYMPH % 16.6 % (20.0-51.0); MEAN CELL VOLUME 85 fl (80.0-100.0); MEAN CORPUSCULAR HEMOGLOBIN 28 pg (27-31); MEAN CORPUSCULAR HGB CONC 32 g/dl (33.0-37.0); MEAN PLATELET VOLUME 8.7 fl (7.4-10.4); MONO # 0.9 K/mm3 (0.1-0.6); MONO % 12.2 % (1.7-9.3); PLATELET COUNT 256 K/mm3 (130-400); RED BLOOD COUNT 3.98 M/mm3 (4.10-5.30); REDCELL DISTRIBUTION WIDTH-CV 13.8 % (11.5-14.5)
[2021-09-18 06:36] LABS: HEMATOCRIT 33.9 % (37.0-47.0)
[2021-09-18 06:55] LABS: CALCIUM 8.8 mg/dL (8.4-10.2); CREATININE, serum 0.71 mg/dL (0.57-1.11); MAGNESIUM 1.5 mg/dL (1.6-2.6); POTASSIUM 4.1 mmol/L (3.5-4.5)
[2021-09-18 07:13] VITALS: BP 131/92; PULSE 73; TEMP 98
[2021-09-18 07:27] LABS: OSMOLALITY-URINE random 394 Osm/kg (50-1200)
--- NOTE | 2021-09-18 09:26 | NUR ---
Scheduled medications given. Shift assessment preformed. Patient A&O. VSS. Non productive cough noted, schedule edwina saeed noted. Fluids running as ordered. Patient denies any pain, discomfort, SOA, or further needs at this time. Call light in reach.
--- NOTE | 2021-09-18 10:09 | NUR ---
Director Organizational attended clinical rounds with the team and patient to discharge home today. SW followed up with patient and her , who is at bedside and they are happy about going home today. Patient has no questions or concerns at this time. Discharge Plan: Home
[2021-09-18] MEDS ORDERED: MAG-OX 400400 MG/TAB PO (10:10)
[2021-09-18 11:05] VITALS: BP 147/63; PULSE 76; TEMP 98.1
--- NOTE | 2021-09-18 13:17 | NUR ---
Patient deemed fit for discharge home. IV DC'd catheter intact, no signs of phlebits. Discharge education/instructions given. All questions answered. VSS. Patient A&O. Patient denies any pain, discomfort, SOA, or further needs a this time. Patient escorted from building via wheelchair by [facility]. transporting home.
== END 2021-09-18 13:21 | disposition home or self-care (01) | DRG 641 ==
LOC: COL.ER 21:41 → MEDICAL 23:14
PROVIDERS: Nurse Practitioner Primary Care; Physician Assistant; Student in an Organized Health Care Education/Training Program; ADMIT Family Medicine
DX: E87.1 Hypo-osmolality and hyponatremia (principal); J06.9 Acute upper respiratory infection, unspecified; I10 Essential (primary) hypertension; E03.9 Hypothyroidism, unspecified; I95.9 Hypotension, unspecified; K21.9 Gastro-esophageal reflux disease without esophagitis; E78.5 Hyperlipidemia, unspecified; E87.8 Other disorders of electrolyte and fluid balance, not elsewhere classified; E86.0 Dehydration; T50.2X5A Adverse effect of carbonic-anhydrase inhibitors, benzothiadiazides and other diuretics, initial encounter; E87.6 Hypokalemia; M19.90 Unspecified osteoarthritis, unspecified site; M85.80 Other specified disorders of bone density and structure, unspecified site; I48.0 Paroxysmal atrial fibrillation; Z20.822 Contact with and (suspected) exposure to COVID-19; Z88.5 Allergy status to narcotic agent; Z90.710 Acquired absence of both cervix and uterus; Z90.721 Acquired absence of ovaries, unilateral; Z95.0 Presence of cardiac pacemaker; Z79.01 Long term (current) use of anticoagulants; Z79.890 Hormone replacement therapy; Z23 Encounter for immunization
CPT/HCPCS: 99223-AI; 99233-AI; 99239; J2405; J7030

== ENCOUNTER → 2021-10-21 | Outpatient (CLI) | payer MEDICARE, BC ==
[~2021-10-21] MED LIST changes: +BETAPACE 120MG120 MG PO; +DOXYCYCLINE HY100 MG PO; +HCTZ12.5TAB PO; +MAG-OX 400400 MG/TAB PO; +MAGNESIUM250 M1 PO; +MASON NATURAL1200 MG PO; +MASON NATURAL2000 IU PO
== END ==
LOC: MC.RAD 08:41
DX: R92.0 Mammographic microcalcification found on diagnostic imaging of breast (principal)
CPT/HCPCS: 30634; 30636

== ENCOUNTER 2023-05-19 14:40 | Outpatient (CLI) | payer MEDICARE, BC ==
[~2023-05-19] VITALS: Ht 165.1 cm; Wt 80.0 kg
[2023-05-19 15:00] VITALS: BP 139/76; PULSE 75; TEMP 98.5
[2023-05-19] MEDS ORDERED: Denosumab 60 MG/ML SYRINGE SQ ONE (15:00)
[2023-05-19] MEDS ORDERED: [UNRECOGNIZED DRUG - CODE] (16:36)
[2023-05-19] MEDS ORDERED: ASPIRIN 81M81 MG/TA2 PO (16:36)
[2023-05-19] MEDS ORDERED: PROTONIX20 MG PO (16:37)
== END 2023-05-19 15:30 | disposition hospice, home (50) ==
LOC: EUO 14:40
DX: M81.0 Age-related osteoporosis without current pathological fracture (principal)
CPT/HCPCS: J0897

== ENCOUNTER 2023-09-30 08:53 | Day surgery (SDC) | payer MEDICARE, BC ==
[~2023-09-30] VITALS: Ht 165.1 cm; Wt 77.0 kg
[~2023-09-30 08:53] MED LIST changes: +ASPIRIN 81M81 MG/TA2 PO; +LR 1,000 ML IV SCH; +PROTONIX20 MG PO; +[UNRECOGNIZED DRUG - CODE]
[2023-09-30] MEDS ORDERED: 1/2 NS 1,000 ML IV SCH (09:30)
[2023-09-30] MEDS ORDERED: NS Flush 10 ML SYRINGE PRN ICA (09:30)
[2023-09-30 09:47] VITALS: BP 177/84; PULSE 78; TEMP 97.9
[2023-09-30 10:06] LABS: HEMATOCRIT 44.7 % (37.0-47.0); HEMOGLOBIN 14.5 g/dl (12.5-16.0); MEAN CELL VOLUME 84 fl (80.0-100.0); MEAN CORPUSCULAR HEMOGLOBIN 27 pg (27-31); MEAN CORPUSCULAR HGB CONC 32 g/dl (33.0-37.0); MEAN PLATELET VOLUME 10.3 fl (7.4-10.4); PLATELET COUNT 120 K/mm3 (130-400); RED BLOOD COUNT 5.32 M/mm3 (4.10-5.30); REDCELL DISTRIBUTION WIDTH-CV 15.5 % (11.5-14.5)
[2023-09-30 10:13] LABS: INR 0.9 (0.8-3.0); PROTHROMBIN TIME 9.7 SECONDS (9.7-12.8)
[2023-09-30 10:22] LABS: CALCIUM 10.2 mg/dL (8.4-10.2); CREATININE, serum 0.88 mg/dL (0.57-1.11); POTASSIUM 4.7 mEq/L (3.5-4.5)
[2023-09-30 11:45] VITALS: BP 106/88; PULSE 80
--- NOTE | 2023-09-30 11:45 | NUR ---
pt rests on right side, has cough with clear secretions. eyes watery, denies pain to throat or jaw area, call light in reach. No c/o
--- NOTE | 2023-09-30 11:55 | NUR ---
PT ALERT AND ORIENTED, STRONG COUGH AND CLEARING SECRETIONS INDEPENDENTLY. DENIES PAIN OR SORE THROAT. VSS. PATIENT'S SPOUSE BROUGHT TO BEDSIDE, PLAN OF CARE REVIEWED. BED TO LOWEST POSITION, X3 BEDRAILS IN PLACE, CALL LIGHT AND TISSUES PLACED WITHIN REACH. TRANSFER OF CARE TO TANGELA DARDEN.
[2023-09-30 12:00] VITALS: BP 145/80; PULSE 74
[2023-09-30 12:15] VITALS: BP 147/87; PULSE 74
--- NOTE | 2023-09-30 12:15 | NUR ---
pt sits on side of bed tolerates well, cought and secretions are much less, sips on water and juice.
[2023-09-30 12:30] VITALS: BP 155/77; PULSE 79
--- NOTE | 2023-09-30 12:40 | NUR ---
Dr Jacinto into see pt and , pt up and dressed, int d'cd intact.
[2023-09-30] MEDS ORDERED: PACERONE400 MG PO (12:53)
[2023-09-30] MEDS ORDERED: LIPITOR20 MG PO (12:54)
[2023-09-30 13:00] VITALS: BP 130/90; PULSE 78
--- NOTE | 2023-09-30 13:00 | NUR ---
reviewed discharge inst. with pt, on moderate sedation precautions, also new meds discussed and to picking tech at pharmacy, followup appt made with verbal understanding. pt discharged via w/c to car with
[2023-09-30] MEDS ORDERED: NS Flush 10 ML SYRINGE BID ICA SCH (21:00)
== END 2023-09-30 13:10 | disposition home or self-care (01) ==
LOC: COL.CAR 08:53
PROVIDERS: Internal Medicine Cardiovascular Disease
DX: I48.0 Paroxysmal atrial fibrillation (principal); I49.5 Sick sinus syndrome; I10 Essential (primary) hypertension; Z79.82 Long term (current) use of aspirin; Z79.899 Other long term (current) drug therapy; Z95.0 Presence of cardiac pacemaker; Z95.828 Presence of other vascular implants and grafts

== ENCOUNTER 2023-12-01 10:23 | Outpatient (CLI) | payer MEDICARE, BC ==
[~2023-12-01] VITALS: Ht 165.1 cm; Wt 76.5 kg
[~2023-12-01 10:23] MED LIST changes: +LIPITOR20 MG PO; -LR 1,000 ML IV SCH; +PACERONE400 MG PO
[2023-12-01] MEDS ORDERED: Denosumab 60 MG/ML SYRINGE SQ ONE (10:45)
[2023-12-01 10:53] VITALS: BP 122/67; PULSE 93; TEMP 97.9
[2023-12-01] MEDS ORDERED: PACERONE200 MG PO (11:17)
[2023-12-01] MEDS ORDERED: LIPITOR20 MG PO (14:40)
[2023-12-01] MEDS ORDERED: ZYRTEC 10MG10 MG PO (14:41)
[2023-12-01] MEDS ORDERED: MAG-OX 400400 MG/TAB PO (15:05)
== END 2023-12-01 15:08 ==
LOC: EUO 10:23
DX: M81.0 Age-related osteoporosis without current pathological fracture (principal)
CPT/HCPCS: J0897